=== PATIENT | male | born 1990 | race African-American/Black ===

== ENCOUNTER 2017-05-28 08:11 | Inpatient (IN) | payer SELFPAY ==
[~2017-05-28] VITALS: Ht 170.2 cm; Wt 79.2 kg
[2017-05-28 08:59] LABS: EOSINOPHIL (%) 0.3 % (0-5); EOSINOPHIL COUNT 0.1 K/uL (0-0.3); IMMATURE GRANULOCYTE (%) 0.4 % (0.0-0.7); IMMATURE GRANULOCYTE COUNT 0.1 K/uL; INSTRUMENT ABS NEUTROPHIL CT 17.9 K/uL; LYMPHOCYTE COUNT 1.1 K/uL (1.0-2.8); MCH 28.6 PG (29.0-34.0); MCHC 35.3 G/DL (30.0-36.0); MEAN PLAT.VOLUME 8.4 uM^3 (9.0-12.4); NEUTROPHIL (%) 88.5 % (45-76); NEUTROPHIL COUNT 17.9 K/uL (1.8-6.4); PLATELET COUNT 369 K/uL (156-360); RBC DIS.WIDTH-CV 12.5 % (11.8-14.6); RBC DIS.WIDTH-SD 36.5 % (39-53); RED BLOOD COUNT 5.31 M/uL (4.00-5.50); WHITE BLOOD COUNT 20.2 K/uL (4.1-10.2)
[2017-05-28 09:06] LABS: CHLORIDE 103 mEq/L (99-109); POTASSIUM 4.2 mEq/L (3.7-5.4); SODIUM 136 mEq/L (136-147)
[2017-05-28 09:09] LABS: GLUCOSE 102 mg/dL (70-99)
[2017-05-28 09:10] LABS: ANION GAP 9 MEQ/L (2-14); TOTAL BILIRUBIN 1.1 mg/dL (0.0-1.0)
[2017-05-28 09:12] LABS: ALKALINE PHOSPHATASE 71 IU/L (3-129); GFR ESTIMATE (CALCULATED) > 59 mL/min/ (58.99-99999)
[2017-05-28 09:13] LABS: UREA NITROGEN (BUN) 10 mg/dL (9-23)
[2017-05-28 09:51] LABS: ADD MIUA? NO; BILIRUBIN NEGATIVE; BLOOD NEGATIVE; COLOR YELLOW ((YELLOW)); GLUCOSE (STRIP) NEGATIVE; KETONES NEGATIVE; LEUKOCYTES NEGATIVE; NITRITE NEGATIVE; PROTEIN (STRIP) NEGATIVE; SPECIFIC GRAVITY 1.017 (1.000-1.030); UROBILINOGEN 0.2 MG/DL (0.2-1.0)
[2017-05-28 11:55] LABS: HEMATOCRIT 40.9 % (38.0-50.0); MCH 28.7 PG (29.0-34.0); MCHC 35.2 G/DL (30.0-36.0); MCV 81.5 FL (86-99); MEAN PLAT.VOLUME 8.3 uM^3 (9.0-12.4); PLATELET COUNT 361 K/uL (156-360); RBC DIS.WIDTH-CV 12.6 % (11.8-14.6); RBC DIS.WIDTH-SD 37.3 % (39-53); RED BLOOD COUNT 5.02 M/uL (4.00-5.50); WHITE BLOOD COUNT 20.4 K/uL (4.1-10.2)
[2017-05-28] MEDS ORDERED: ZOFRAN4 MG PO (12:45)
[2017-05-28 18:35] VITALS: BP 121/67
[2017-05-28 19:35] VITALS: BP 135/59
[2017-05-28 23:20] VITALS: BP 108/70
[2017-05-29 05:30] VITALS: BP 124/67
[2017-05-29 05:32] LABS: HEMATOCRIT 40.9 % (38.0-50.0); MCV 82.3 FL (86-99); MEAN PLAT.VOLUME 8.4 uM^3 (9.0-12.4); PLATELET COUNT 331 K/uL (156-360); RBC DIS.WIDTH-CV 12.7 % (11.8-14.6); RBC DIS.WIDTH-SD 38.3 % (39-53); RED BLOOD COUNT 4.97 M/uL (4.00-5.50)
[2017-05-29 06:00] LABS: ANION GAP 8 MEQ/L (2-14); CHLORIDE 106 MEQ/L (99-109); GFR ESTIMATE (CALCULATED) > 59 mL/min/ (58.99-99999); GLUCOSE 119 mg/dL (70-99); POTASSIUM 3.9 MEQ/L (3.7-5.4); SAMPLE HEMOLYSIS CHECK 0; SAMPLE ICTERIC CHECK 0; SAMPLE LIPEMIA CHECK 0; SODIUM 139 MEQ/L (136-147); UREA NITROGEN (BUN) 7 mg/dL (9-23)
[2017-05-29 08:56] VITALS: BP 133/72
[2017-05-29 13:00] VITALS: BP 126/77
[2017-05-29 14:35] LABS: INTERNAL CONTROL VALID? YES; MONOSPOT (MONONUCLEOSIS SEROL) NEGATIVE
[2017-05-29 19:29] VITALS: BP 146/66
[2017-05-30 00:02] VITALS: BP 109/57
[2017-05-30 05:18] LABS: HEMATOCRIT 41.1 % (38.0-50.0); MCH 27.8 PG (29.0-34.0); MCHC 33.6 G/DL (30.0-36.0); MCV 82.9 FL (86-99); MEAN PLAT.VOLUME 8.3 uM^3 (9.0-12.4); PLATELET COUNT 339 K/uL (156-360); RBC DIS.WIDTH-CV 12.9 % (11.8-14.6); RBC DIS.WIDTH-SD 39.1 % (39-53); RED BLOOD COUNT 4.96 M/uL (4.00-5.50); WHITE BLOOD COUNT 14.3 K/uL (4.1-10.2)
[2017-05-30 05:29] VITALS: BP 138/65
[2017-05-30 07:12] VITALS: BP 109/51
[2017-05-30 09:45] LABS: LYME DISEASE SEROLOGY SCREEN NEGATIVE (NEGATIVE)
[2017-05-30 11:11] VITALS: BP 117/56
[2017-05-30] MEDS ORDERED: AUGMENTIN875 MG PO (12:38)
[2017-05-31 10:42] LABS: HIV INDEX 0.11; HIV-1/2 AB/AG COMBO Nonreactive; HPCA INDEX 0.19
== END 2017-05-30 14:50 | disposition home or self-care (01) | DRG 864 ==
LOC: EME 08:11 → EDOF 13:37 → 5WEST 13:37 → ENRESERV 13:37 → 5WEST 17:59
PROVIDERS: Emergency Medicine; Hospitalist; Internal Medicine; Internal Medicine Infectious Disease; Nurse Practitioner Adult Health
DX: R50.9 Fever, unspecified (principal); R10.9 Unspecified abdominal pain; R11.2 Nausea with vomiting, unspecified; R19.7 Diarrhea, unspecified; J02.9 Acute pharyngitis, unspecified; R06.00 Dyspnea, unspecified; M54.5 Low back pain
CPT/HCPCS: 70450; 71010; 71250; 74177; 80048; 80053; 81003; 83605; 84145 90; 85025; 85027; 86308; 86611 90; 86618; 86703; 86803; 87040; 87340; 87502; 87651 90; 99281; 99285; G0378; J1885; J2405; J7030; S0028